=== PATIENT | male | born 1935 | race Caucasian/White ===

== ENCOUNTER → 2020-02-02 10:55 | Outpatient (CLI) | payer MEDICARE, OTHER, SELFPAY ==
--- NOTE | 2020-02-02 10:59 | DI.RAD.S_ITS ---
PROCEDURE: XR LUMBAR SPINE MIN 4V INDICATIONS: Back pain. TECHNIQUE: 5 views of the lumbar spine were acquired. COMPARISON: [facility], MR, L-SPINE WITHOUT CONTRAST, 03/24/2016, 9:58. FINDINGS: Bones: 5 [id number] vertebrae are present. There is normal bony alignment. No vertebral body compression fractures. No suspicious bony lesions. There is degenerative disc disease, severe at L4-L5, moderate at L5-S1 and a mild at L3-L4. There is severe facet arthropathy at L4-L5 and L5-S1. Soft tissues: Overlying bowel gas pattern is normal. Moderate atherosclerotic calcifications. Oblique images: No pars defects. IMPRESSION: Severe degenerative disc disease and facet arthropathy. Dictated by: Becca Kuhn M.D. on 02/02/2020 at 17:32 Approved by: Becca Kuhn M.D. on 02/02/2020 at 17:36
== END ==
PROVIDERS: Family Provider Internal Medicine; PCP Internal Medicine; Referring Provider Internal Medicine; Visit Provider Physical Medicine & Rehabilitation
DX: M43.17 Spondylolisthesis, lumbosacral region (principal); M47.816 Spondylosis without myelopathy or radiculopathy, lumbar region; M47.817 Spondylosis without myelopathy or radiculopathy, lumbosacral region; M51.36 Other intervertebral disc degeneration, lumbar region; M51.37 Other intervertebral disc degeneration, lumbosacral region; M51.26 Other intervertebral disc displacement, lumbar region
CPT/HCPCS: 72110; 99214

== ENCOUNTER → 2020-02-07 10:19 | Outpatient (CLI) | payer MEDICARE, OTHER, SELFPAY ==
[2020-02-09 06:06] LABS: COVID19 Sendout Not Detected (Not Detect)
== END ==
PROVIDERS: Family Provider Internal Medicine; PCP Internal Medicine; Visit Provider Physician Assistant
DX: Z01.812 Encounter for preprocedural laboratory examination (principal)
CPT/HCPCS: 87635

== ENCOUNTER → 2020-02-07 11:44 | Outpatient (CLI) | payer MEDICARE, OTHER, SELFPAY ==
--- NOTE | 2020-02-07 11:47 | DI.MRI.S_ITS ---
PROCEDURE: MR LUMBAR SPINE WO CON INDICATIONS: L4/5 hnp TECHNIQUE: Noncontrast sagittal T1 spin echo and T2 fast echo, sagittal STIR, axial T1 and T2 fast spin echo through the lumbar spine. In cases with scoliosis, additional coronal T2 fast spin echo may be performed. COMPARISON: [facility], , L-SPINE WITHOUT CONTRAST, 03/24/2016, 9:58. FINDINGS: Image quality: Excellent. Alignment and Curvature: There is normal bony alignment. Bone Marrow: Marrow is of normal overall signal. No acute vertebral body compression fractures. Spinal Cord: Conus medullaris terminates at the L1 level. Visualized cord demonstrates normal signal and size. Paraspinous Soft Tissues: No paravertebral masses. L1-L2: Normal appearance. L2-L3: Normal appearance. L3-L4: The degenerative disc disease at this level is slightly worsened from March 2016, and there is a jbyp-mj-popqannk degree of degenerative facet osteoarthritis but without foraminal stenosis impinging on individual nerve roots on the left. There is, however, an asymmetric right-sided posterior mild disc bulge which confines with facet hyperostosis to produce anav-wy-mybmkrij right-sided foraminal stenosis with potential for impingement on the course of the right L3 nerve root.. L4-L5: Degenerative disc disease at L4-5 has been mildly worsened, with a greater degree of facet hyperostosis when compared to the prior study from March 2016. The degenerative disc disease includes a posterior midline and left paramedian mild disc bulge, but which combines with asymmetric left greater than right facet hyperostosis to produce moderate left and dswp-tb-grwaycjc right foraminal stenosis, with potential for asymmetric bilateral left greater than right L4 nerve root impingement. L5-S1: Facet osteoarthritis at this level has increased, in there is secondary mild ligamentous laxity allowing mild grade 1 anterolisthesis of L5 on S1, without significant spinal stenosis. However, there is vbld-df-ciofcfzf symmetric bilateral foraminal stenosis IMPRESSION: Mild interval worsening of degenerative disc disease and facet osteoarthritis along the lumbosacral spine as discussed in detail by level in the body of the report above. A disc herniation is not found. Significant spinal stenosis is not identified. There is both symmetric and mildly asymmetric neural foraminal stenosis as noted with potential for mild impingement on individual nerve roots from L3 inferiorly. Dictated by: Jose Camilo M.D. on 02/09/2020 at 13:26 Approved by: Jose Camilo M.D. on 02/09/2020 at 13:33
== END ==
PROVIDERS: Family Provider Internal Medicine; PCP Internal Medicine; Referring Provider Physical Medicine & Rehabilitation; Visit Provider Physical Medicine & Rehabilitation
DX: M43.17 Spondylolisthesis, lumbosacral region (principal); M51.26 Other intervertebral disc displacement, lumbar region; M51.36 Other intervertebral disc degeneration, lumbar region; M47.816 Spondylosis without myelopathy or radiculopathy, lumbar region; M47.817 Spondylosis without myelopathy or radiculopathy, lumbosacral region; M48.061 Spinal stenosis, lumbar region without neurogenic claudication
CPT/HCPCS: 72148

== ENCOUNTER 2020-02-10 07:22 | Outpatient (CLI) | payer MEDICARE, OTHER, SELFPAY ==
[2020-02-10] VITALS (10 sets, daily range): BP systolic 90–136; BP diastolic 51–66; PULSE 42–53; RESP 9–17; TEMP 36.1; O2SAT 97–100
--- NOTE | 2020-02-10 07:26 | DI.RAD.S_ITS ---
Caution: Report not yet finalized and possibly incomplete! PROCEDURE: PAIN L/S TRANSFORAMINAL INJECT INDICATIONS: SPONDYLOSIS COMPARISON: [facility], MR, MR LUMBAR SPINE WO CON, 02/07/2020, 12:04. FINDINGS: Fluoroscopic spot filming was performed to verify placement of a spinal needle at the L4-L5 level, as labeled on the films. Appropriate location of the needle tip was confirmed by injection of iodinated contrast. IMPRESSION: Intraprocedural examination within normal limits. Dictated by: Paul Slater M.D. on 02/10/2020 at 11:02 Approved by: Paul Slater M.D. on 02/10/2020 at 11:02
[2020-02-10] MEDS: MIDAZOLAM 5 MG/5 ML VIAL IV (09:27)
[2020-02-10] MEDS: fentaNYL 100 MCG/2 ML INJ 50 MCG IV (09:30)
[2020-02-10] MEDS: IOPAMIDOL 15 ML VIAL 3 ML INJ (09:34)
[2020-02-10] MEDS: BUPIVACAINE 0.25% (PF) VIAL 2 ML INJ (09:34)
[2020-02-10] MEDS: BETAMETHASONE 30 MG/5 ML MDV 6 MG INJ (09:35)
[2020-02-10] MEDS: DEXAMETHASONE 10 MG/ML VIAL 20 MG INJ (09:35)
--- NOTE | 2020-02-10 09:42 | P.PCN_ITS ---
Date/Time/Diagnoses Date of procedure: 02/10/20 Time of procedure: 09:42 Pre-procedure diagnosis: 1. FORAMINAL STENOSIS WITH LE SYMPTOMS Post-procedure diagnosis: same Procedure Notes Procedure: 1. FLUOROSCOPICALLY GUIDED CONTRAST CONTROLLED TRANSFORAMINAL EPIDURAL STEROID INJECTION - RIGHT L4/5 TFESI Indications: Filemon is referred by Dr. Mejia and Valentino for treatment of Foraminal Stenosis with Right LE Symptoms Physician: Orion Gutierrez Total Fluoroscopy time (seconds): 9 Total sedation minutes: 11 Complications: none Procedure in detail & Post-procedure care: FINDINGS Foraminal Nerve Root Compression secondary to disc disease and facet hypertrophy DESCRIPTION OF PROCEDURE Following review of allergy and review of potential side effects and complications, including, but not necessarily limited to, infection, allergic reaction, local tissue breakdown, stroke, temporary or permanent nerve injury, paralysis, and possible , the patient indicated that the patient understood and agreed to proceed. An informed consent document was signed by the patient, witnessed by a nurse, and placed in the patient's chart. Additionally, other treatment options including medications, modalities, and physical therapy were reviewed with the patient. After review of previous anaesthesic history and IV conscious sedation the patient was deemed safe to proceed with today?s procedure with IV conscious sedation as ASA class II designation. Safety time-out was performed to confirm patient ID, procedure to be performed and site of procedure. IV sedation was accomplished with a combination of 2mg of Versed and 50mcg of Fentanyl was administered by the RN after DO order, titrated to patient comfort during the course of the procedure while the patient remained responsive to all verbal commands In the prone position following sterile prep and drape of the lumbar region, the Right L4/5 posterior neuroforamen was identified fluoroscopically. The skin was anesthetized via a 25-gauge 1.5-inch needle with 1% lidocaine solution. At this point, a 25-gauge 3.5-inch spinal needle was atraumatically introduced and advanced under fluoroscopic guidance through the posterior Right L4/5 neuroforamen to approximately the anterior aspect of the canal. Depth was confirmed on lateral view. Following negative aspiration, injection of approximately 1.5cc of Isovue 200 under live fluoroscopy in the AP view confirmed excellent flow along the nerve root, into the epidural space without vascular or intrathecal uptake observed Radiological data, including multiple fluoroscopic views of the lumbosacral spine, reveal a spinal needle at the right L4/5 posterior neuroforamen. Subsequent views show flow of contrast material flowing superiorly and inferiorly along the nerve root confirming epidural flow. Subsequently, a test dose of 1.5 cc of 1% lidocaine solution was administered and patient was observed for two minutes for signs or symptoms of complications, including abdominal pain, shortness of breath, bilateral upper or lower extremity weakness, nausea and vomiting, prior to steroid injection. At this point, a total of 3cc or 20mg of dexamethasone and 6mg of betamethasone was injected without incident. The procedure tolerated the procedure well without signs or symptoms of complications prior to transfer to the recovery area continued monitoring without incident. The patient was then transferred to the recovery area where they were observed for an appropriate time after the injection. The patient reported a VAS score of 7 prior to the procedure and a post- procedure VAS of 0. POST OP INSTRUCTIONS The patient was provided a Pain Log to continue to record their response to the target-specific procedure prior to follow-up visit with their referring physician. Additionally, specific post-injection care instructions and a contact number to our office were provided if concerns arise regarding possible complications associated with the procedure are suspected.
== END 2020-02-10 10:10 | disposition home or self-care (01) ==
LOC: RAD 07:23
PROVIDERS: Family Provider Internal Medicine; PCP Internal Medicine; Referring Provider Physical Medicine & Rehabilitation; Visit Provider Physical Medicine & Rehabilitation
DX: M48.061 Spinal stenosis, lumbar region without neurogenic claudication (principal); M51.16 Intervertebral disc disorders with radiculopathy, lumbar region
CPT/HCPCS: 64483; 99152; J0702; J1100; J2250; J3010

== ENCOUNTER → 2022-10-18 12:09 | Outpatient (CLI) | payer MEDICARE, OTHER, SELFPAY ==
--- NOTE | 2022-10-18 12:10 | DI.RAD.S_ITS ---
PROCEDURE: XR KNEE RT 3V INDICATIONS: Right knee pain status post arthroplasty TECHNIQUE: 3 views of the knee were acquired. COMPARISON: [facility], , KNEE 1-2 VIEWS RIGHT, 02/02/2016, 12:33. FINDINGS: Bones: Expected appearance of total right knee arthroplasty. No evidence of hardware failure or loosening. No fractures or dislocations. No suspicious bony lesions. Soft tissues: No joint effusion. No suspicious soft tissue calcifications. IMPRESSION: Expected appearance of total right knee arthroplasty. Dictated by: Chino Stover M.D. on 10/18/2022 at 17:27 Approved by: Chino Stover M.D. on 10/18/2022 at 17:27
== END ==
PROVIDERS: Family Provider Internal Medicine; PCP Nurse Practitioner; Referring Provider Physical Medicine & Rehabilitation; Visit Provider Physical Medicine & Rehabilitation
DX: Z96.659 Presence of unspecified artificial knee joint (principal); M25.561 Pain in right knee
CPT/HCPCS: 73562

== ENCOUNTER 2022-10-31 14:18 | Outpatient (CLI) | payer MEDICARE, OTHER, SELFPAY ==
[2022-10-31] VITALS (7 sets, daily range): BP systolic 118–159; BP diastolic 60–78; PULSE 71–80; RESP 10–20; TEMP 36.4; O2SAT 96–99
--- NOTE | 2022-10-31 14:19 | DI.RAD.S_ITS ---
PROCEDURE: PAIN L/S TRANSFORAMINAL INJECT INDICATIONS: SPONDYLOSIS COMPARISON: [facility], , PAIN L/S TRANSFORAMINAL INJECT, 02/10/2020, 9:31. FINDINGS: Fluoroscopic spot filming was performed to verify placement of spinal needles at the right L4-5 level(s), as labeled on the films. Appropriate location(s) of the needle tip(s) was confirmed by injection of iodinated contrast. IMPRESSION: Right L4-5 transforaminal epidural needle placement. Dictated by: Jm Evans M.D. on 11/01/2022 at 12:14 Approved by: Jm Evans M.D. on 11/01/2022 at 12:15
[2022-10-31] MEDS: MIDAZOLAM 2 MG/2 ML VIAL IV (15:41)
[2022-10-31] MEDS: BUPIVACAINE 0.25% (PF) VIAL 2 ML INJ (15:47)
[2022-10-31] MEDS: BETAMETHASONE 30 MG/5 ML MDV 6 MG INJ (15:48)
[2022-10-31] MEDS: DEXAMETHASONE 10 MG/ML VIAL 20 MG INJ (15:48)
[2022-10-31] MEDS: IOPAMIDOL 15 ML VIAL 3 ML INJ (15:49)
--- NOTE | 2022-10-31 15:58 | P.PCN_ITS ---
Date/Time/Diagnoses Date of procedure: 10/31/22 Time of procedure: 15:58 Pre-procedure diagnosis: 1. FORAMINAL STENOSIS WITH LE SYMPTOMS Post-procedure diagnosis: same Procedure Notes Procedure: 1. FLUOROSCOPICALLY GUIDED CONTRAST CONTROLLED TRANSFORAMINAL EPIDURAL STEROID INJECTION - RIGHT L4/5 TFESI Indications: Filemon is referred by NORBERT Boo for treatment of Foraminal Stenosis with Right LE Symptoms Physician: Orion Gutierrez Total Fluoroscopy time (seconds): 9 Total sedation minutes: 10 Complications: none Procedure in detail & Post-procedure care: FINDINGS Foraminal Nerve Root Compression secondary to disc disease and facet hypertrophy DESCRIPTION OF PROCEDURE Following review of allergy and review of potential side effects and complications, including, but not necessarily limited to, infection, allergic reaction, local tissue breakdown, stroke, temporary or permanent nerve injury, paralysis, and possible , the patient indicated that the patient understood and agreed to proceed. An informed consent document was signed by the patient, witnessed by a nurse, and placed in the patient's chart. Additionally, other treatment options including medications, modalities, and physical therapy were reviewed with the patient. After review of previous anaesthesic history and IV conscious sedation the patient was deemed safe to proceed with today?s procedure with IV conscious sedation as ASA class II designation. Safety time-out was performed to confirm patient ID, procedure to be performed and site of procedure. IV sedation was accomplished with a combination of 2mg of Versed was administered by the RN after DO order, titrated to patient comfort during the course of the procedure while the patient remained responsive to all verbal commands In the prone position following sterile prep and drape of the lumbar region, the right L4/5 posterior neuroforamen was identified fluoroscopically. The skin was anesthetized via a 25-gauge 1.5-inch needle with 1% lidocaine solution. At this point, a 25-gauge 3.5-inch spinal needle was atraumatically introduced and advanced under fluoroscopic guidance through the posterior right L4/5 neuroforamen to approximately the anterior aspect of the canal. Depth was confirmed on lateral view. Following negative aspiration, injection of approximately 1.5cc of Isovue 200 under live fluoroscopy in the AP view co nfirmed excellent flow along the nerve root, into the epidural space without vascular or intrathecal uptake observed Radiological data, including multiple fluoroscopic views of the lumbosacral spin e, reveal a spinal needle at the right L4/5 posterior neuroforamen. Subsequent views show flow of contrast material flowing superiorly and inferiorly along the nerve root confirming epidural flow. Subsequently, a test dose of 1.5 cc of 1% lidocaine solution was administered and patient was observed for two minutes for signs or symptoms of complications, including abdominal pain, shortness of breath, bilateral upper or lower extremity weakness, nausea and vomiting, prior to steroid injection. At this point, a total of 3cc or 20mg of dexamethasone and 6mg of betamethasone was injected without incident. The procedure tolerated the procedure well without signs or symptoms of complications prior to transfer to the recovery area continued monitoring without incident. The patient was then transferred to the recovery area where they were observed for an appropriate time after the injection. The patient reported a VAS score of 7 prior to the procedure and a post- procedure VAS of 0. POST OP INSTRUCTIONS The patient was provided a Pain Log to continue to record their response to the target-specific procedure prior to follow-up visit with their referring physician. Additionally, specific post-injection care instructions and a contact number to our office were provided if concerns arise regarding possible complications associated with the procedure are suspected.
== END 2022-10-31 16:15 | disposition home or self-care (01) ==
LOC: RAD 14:18
PROVIDERS: Family Provider Internal Medicine; PCP Nurse Practitioner; Referring Provider Physical Medicine & Rehabilitation; Visit Provider Physical Medicine & Rehabilitation
DX: M48.061 Spinal stenosis, lumbar region without neurogenic claudication (principal); M51.16 Intervertebral disc disorders with radiculopathy, lumbar region; M47.26 Other spondylosis with radiculopathy, lumbar region
CPT/HCPCS: 64483; 99152; J0702; J1100; J2250; J3490

== ENCOUNTER → 2025-03-16 08:24 | Outpatient (CLI) | payer MEDICARE, OTHER, SELFPAY ==
--- NOTE | 2025-03-16 08:27 | DI.RAD.S_ITS ---
PROCEDURE: XR LUMBAR SPINE MIN 4V INDICATIONS: BACK PAIN TECHNIQUE: 5 views of the lumbar spine were acquired, including bilateral oblique views. COMPARISON: [facility], MR, MR LUMBAR SPINE WO CON, 02/07/2020, 12:04. [facility], RG, XR L-SPINE 2-3V, 10/06/2022, 9:58. FINDINGS: Bones: 5 nonrib-bearing vertebrae are present. There is 3 mm grade 1 anterolisthesis of L5 on S1. No vertebral body compression fractures. No suspicious bony lesions. Multilevel disc space narrowing and degenerative endplate changes. Multilevel facet hypertrophy. Soft tissues: Overlying bowel gas pattern is normal. Aortic atherosclerotic calcifications are present. Multiple calcifications project over the left upper quadrant, most likely splenic calcifications. Right upper quadrant surgical clips. A small calcification projects over the left paraspinous region on AP view. Oblique images: No pars defects. IMPRESSION: 1. No acute osseous abnormality. 2. 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 3. Left paraspinal calcification could represent a renal calculus. Suspected benign splenic calcifications. Approved by: Laith Malik M.D. on 03/16/2025 at 8:44
== END ==
PROVIDERS: PCP Nurse Practitioner; Referring Provider Nurse Practitioner; Visit Provider Personal Emergency Response Attendant
DX: M51.26 Other intervertebral disc displacement, lumbar region (principal); M47.816 Spondylosis without myelopathy or radiculopathy, lumbar region; M43.17 Spondylolisthesis, lumbosacral region; I70.0 Atherosclerosis of aorta
CPT/HCPCS: 72110